=== PATIENT | female | born 1990 | race Caucasian/White ===

== ENCOUNTER 2017-02-07 16:00 | Observation (INO) | payer SELFPAY ==
[~2017-02-07] VITALS: Ht 154.9 cm; Wt 55.4 kg
--- NOTE | ~2017-02-07 | OR ---
PATIENT'S NAME: NANCY VENEGAS [facility] AGE: 26 Y [address] ROOM: [place] [address] LOCATION: [facility] ADMIT DATE: 02/07/2017 OR/Procedure Report DISCHARGE DATE: 02/09/2017 FAMILY PHYSICIAN: Physician, Unknown ATTENDING PHYSICIAN: Prince Smith SURGEON: Rob Pearce MD CHEMISTRY TEACHER: Ottoniel Eckert PA-C. DATE OF PROCEDURE: 02/08/2017 PREOPERATIVE DIAGNOSIS: Acute cholecystitis. POSTOPERATIVE DIAGNOSIS: Acute cholecystitis. PROCEDURE PERFORMED: Laparoscopic cholecystectomy. FINDINGS: The gallbladder was extremely edematous. No stones were identified. There was ascites in the abdomen. ESTIMATED BLOOD LOSS: Less than 50 mL. COMPLICATIONS: None. INDICATIONS: The patient presented with acute onset abdominal pain in the right upper quadrant. She had a thickened gallbladder wall by ultrasound and appearance of cholecystitis. No stones were visualized. Her clinical exam was consistent with acute cholecystitis. Because of this, we discussed cholecystectomy with the patient and the risks, benefits, and alternatives, which include, but are not limited to, bleeding, infection, bile leak, bile duct injury, injury to other viscera as well as ongoing symptomatology. She understood the risks of surgery and elected to proceed. DESCRIPTION OF PROCEDURE: The patient was taken into the operating room. She was supine, given IV sedation, and subsequently intubated. Her abdomen was prepped with ChloraPrep and sterilely draped. Local anesthetic was infiltrated just superior to the umbilicus. A transverse incision was created. The abdomen was elevated. A Veress needle was inserted. Pneumoperitoneum was induced. Following this, a 5-mm trocar was inserted followed by insertion of the camera. There was no injury from initial trocar placement. Three more trocars were then positioned, an 11-mm epigastric and two 5-mm right subcostal ports. Skin overlying the peritoneum was first anesthetized prior to making these incisions. All 3 of these trocars were inserted under direct visualization. The gallbladder was noted to be very edematous. There was omentum adherent to this and this was taken down both bluntly and with electrocautery. The gallbladder was then grasped and was elevated over the dome of the gallbladder. The infundibulum was grasped and PATIENT'S NAME: NANCY VENEGAS [facility] AGE: 26 Y [address] ROOM: [place] [address] LOCATION: [facility] ADMIT DATE: 02/07/2017 OR/Procedure Report DISCHARGE DATE: 02/09/2017 FAMILY PHYSICIAN: Physician, Unknown ATTENDING PHYSICIAN: Prince Smith retracted inferiorly and laterally to expose the Calot triangle. The cystic duct and artery were then dissected around circumferentially. A critical window was able to be obtained. Both of these structures were then doubly clipped and divided. The gallbladder was then removed from the liver bed using electrocautery, again it was very edematous. This was then grasped and brought out through the epigastric port site. The liver bed was then inspected. We had noted some ascites within the abdomen and this was suctioned from the abdominal cavity. There did not appear to be gross evidence of cirrhosis. The liver bed was inspected. It appeared hemostatic. Clips appeared to be in good position on both the cystic duct and artery. The area was then irrigated. Fluid was removed. The pneumoperitoneum was released. The trocars were removed. The trocar sites appeared hemostatic. The fascia of the epigastric port site was approximated with 0 Vicryl suture followed by skin closure of all 4 port sites with 4-0 Monocryl suture. Steri- Strips and sterile dressings were placed. The patient was extubated and sent to recovery in good condition. Ottoniel Eckert was necessary for visualization, retraction, and hemostasis throughout the entire case. MD KT BARRIGA/timothy /[id number] d: 02/13/172042 t: 02/27/171812, OPERATIVE SUMMARY
--- NOTE | ~2017-02-07 | CON ---
PATIENT'S NAME: NANCY VENEGAS [facility] AGE: 26 Y [address] ROOM: [place] [address] LOCATION: [facility] [place] ADMIT DATE: 02/07/2017 Consultation DISCHARGE DATE: FAMILY PHYSICIAN: PHYSICIAN, UNKNOWN ATTENDING PHYSICIAN: CORNELIUS JONES DATE OF CONSULTATION: 02/08/2017 REFERRING PHYSICIAN: Rob Pearce MD CONSULTATION NOTE REASON FOR CONSULTATION: Acute cholecystitis. HISTORY OF PRESENT ILLNESS: Nancy Venegas is a 26-year-old female, who was transferred to [facility] under the care of the hospitalist due to abdominal pain and findings worrisome for acute cholecystitis by ultrasound. The patient states that on Sunday, February 05, she noticed that her legs were swollen. She presented to the emergency room in [place], where she subsequently had an echocardiogram done. The following morning, she had abdominal pain along with some nausea, but no vomiting. An ultrasound of the abdomen was then obtained which showed a circumferential gallbladder wall thickening with associated edema as well as pericholecystic fluid. The patient was tender to direct gallbladder compression consistent with positive Pedro sign. Common bile duct measured 4 mm which was within normal limits. No mention of cholelithiasis was noted. The provider in [place], apparently contacted the surgeon, Dr. Roa from [place], who recommended a HIDA scan. The patient subsequently transferred to [facility] for the HIDA scan, and Surgery consultation was requested. The patient states that she has been having intermittent abdominal pain for months. This is typically associated with eating greasy foods. She states the pain is in the epigastric and right upper quadrant, and now also in the lower back. She denies any history of jaundice, hepatitis, or pancreatitis. PAST MEDICAL HISTORY: ALLERGIES: LATEX CAUSES RASH. MEDICATIONS: The patient denies being on any medications at home. ILLNESSES: PATIENT'S NAME: NANCY VENEGAS [facility] AGE: 26 Y [address] ROOM: [place] [address] LOCATION: [facility] [place] ADMIT DATE: 02/07/2017 Consultation DISCHARGE DATE: FAMILY PHYSICIAN: PHYSICIAN, UNKNOWN ATTENDING PHYSICIAN: CORNELIUS JONES None. PAST SURGICAL HISTORY: Operations: 1. D and C, it sounds like she may have been septic at the time of that procedure and had complications associated with that intraoperatively. 2. Two sections. SOCIAL HISTORY: The patient is accompanied by her boyfriend. 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 She smokes a pack of cigarettes per day. Does not consume alcohol. She recently did cocaine and heroin within the past week. FAMILY HISTORY: Not obtained. REVIEW OF SYSTEMS: The patient denies any recent coughs or colds. No shortness of breath. No chest pain. No history of any heart problems. No bowel issues. No blood in her stool. No pain, frequency, or urgency of urination. The patient denies being . PHYSICAL EXAMINATION: VITAL SIGNS: Temperature is 98.4, blood pressure 154/76, pulse 45, and respirations 17. GENERAL: A 26-year-old female, who is resting in bed. Curled up on her right side. She will answer my questions, but does not expand on the information at all. HEENT: Grossly normal. LUNGS: Clear to auscultation bilaterally. No wheezes, rhonchi, or rales noted. HEART: Regular rate and rhythm. ABDOMEN: Active bowel sounds. Abdomen is soft, very tender in the right upper quadrant. She does have a piercing at her umbilicus. LABORATORY DATA: Laboratory work here shows a white blood cell count of 7.9, hemoglobin 10.2, hematocrit 30.6, and platelets 206,000. CMP: Sodium is 144, potassium is 3.6, chloride 114, glucose 100, BUN 12, creatinine 0.6, total bilirubin 0.6, alkaline phosphatase 132, AST 98, and ALT 159. Blood culture shows no growth. Labs from [place] showed drug testing positive for cocaine and opiates. Liver function tests there showed a total bilirubin of 0.4, alkaline phosphatase 118, ALT 96, and AST 81. ASSESSMENT: PATIENT'S NAME: NANCY VENEGAS [facility] AGE: 26 Y [address] ROOM: [id number] [place], [place] [address] LOCATION: [facility] [place] ADMIT DATE: 02/07/2017 Consultation DISCHARGE DATE: FAMILY PHYSICIAN: PHYSICIAN, UNKNOWN ATTENDING PHYSICIAN: CORNELIUS JONES A 26-year-old female, with a 2-day history of right upper quadrant abdominal pain and nausea with ultrasound showing changes consistent with acute cholecystitis. PLAN: Based on the clinical exam, and findings on ultrasound, the patient has acute cholecystitis. The patient was scheduled to do a HIDA scan, per the recommendations of Dr. Roa, but we will go ahead and cancel that and recommend that we proceed with removal of the gallbladder at this time. The operation was discussed with the patient with expectations of her being able to go home tomorrow. Risks of the procedure including risk of bleeding, risk of infection, risk of injury to other structures was discussed with her. I discussed that she should be able to be back to fairly normal activities within about a week's time. The patient was in understanding and agreement. The patient did eat some toast this morning in anticipation of the HIDA scan, so we will talk to Anesthesia in regard to timing of the procedure. Dr. Pearce has evaluated the patient, is involved in assessment and plan, and is available for supervision. MIC SOSA PA-C FOR MD ROBERTA BARRIGA/timothy /[id number] d: 02/08/17 1447 t: 02/27/17 1811, CONSULTATION REPORT
--- NOTE | ~2017-02-07 | DS ---
PATIENT'S NAME: NANCY VENEGAS [facility] AGE: 26 Y [address] ROOM: [place] [address] LOCATION: [facility] [place] ADMIT DATE: 02/07/2017 Discharge Summary DISCHARGE DATE: 02/09/2017 FAMILY PHYSICIAN: Physician, Unknown ATTENDING PHYSICIAN: Prince Smith PRINCIPAL DIAGNOSES: 1. Acute cholecystitis. 2. Transaminitis secondary to acute cholecystitis. 3. Polysubstance abuse. 4. Tobaccoism. PRINCIPAL PROCEDURE: Laparoscopic cholecystectomy by Dr. Pearce. CONSULTING PROVIDER: Surgery. HOSPITAL COURSE: Please reference any admitting data to the history and physical as dictated by Dr. Prince Smith. This 26-year-old female, who was at the [facility] was found to have acute cholecystitis and positive blood cultures was transferred over to [facility] for further evaluation and management. The patient was continued on Zosyn coverage for concerns of positive blood culture. She was given IV symptomatic management as well as antinausea medications. A HIDA scan was ordered and a surgical consultation was ordered. By next morning, after surgical review, the HIDA was canceled and the patient was felt to be needing a laparoscopic cholecystectomy, which risks, benefits, and alternatives were discussed. She then went to surgery later that evening and understood the laparoscopic cholecystectomy with Dr. Pearce. The Zosyn was then stopped, blood cultures were found to be what appeared to be contaminated with a bacillus species. Repeat blood cultures were obtained and that showed no growth to date. White blood cell count was normal and she was afebrile during her stay. There were no signs of infection during the surgery. She was able to tolerate food and oral pain medicines. Her liver functions did decrease. Her total bilirubin was normal. LABORATORY DATA: Pertinent positives as listed above. Blood culture data from outlying facility had shown positive with culture results as bacillus species, not anthracis, felt to be contaminants. Repeat blood cultures here showed no growth to date. Most recent CBC was normal with a white blood cell count of 7.8, hemoglobin of 11.0, hematocrit of 33.0, and a platelet count of 208. A chemistry panel showed a glucose of 137, BUN of 15, creatinine of 0.6, sodium of 143, potassium of 3.8, chloride of 113, CO2 of 22, and calcium is 7.5. Her AST was down from 98 to 65, ALT 159-147, total bilirubin is normal at 0.3 and 0.6 respectively. GFR was greater than 60. PATIENT'S NAME: NANCY VENEGAS [facility] AGE: 26 Y [address] ROOM: [place] [address] LOCATION: [facility] [place] ADMIT DATE: 02/07/2017 Discharge Summary DISCHARGE DATE: 02/09/2017 FAMILY PHYSICIAN: Physician, Unknown ATTENDING PHYSICIAN: Prince Smith IMAGING: Obtained from outside facility. DISCHARGE MEDICATIONS: 1. Protonix 40 mg p.o. every day. 2. The [place] 5/325 mg 1-2 tablets every 4 hours as needed. 3. Ibuprofen 400 mg every 4 hours as needed for pain. 4. Nicotine patch 21 mg topically every 24 hours x6 weeks, then nicotine patch 14 mg topically every 24 hours x2 weeks, then nicotine patch 7 mg topically x24 hours every 2 weeks, then stop. DISCHARGE INSTRUCTIONS: The patient will be discharged home with no restrictions to her diet or activity or return to work. Prescription was written for 02/13/2017. The dressing may be removed in the next 2-3 days. Postoperative instruction sheet was educated. She is also educated to stop smoking and stop doing drugs and the long-term effects to her health. She did agree that she would be interested in stopping smoking and agreeable to nicotine patches. A prescription was ordered. She will need to follow up with Dr. Pearce on Thursday, February 23, 2017, at 1015 hours for posthospitalization evaluation. Total time arranging discharge was less than 30 minutes. Thank you for allowing us to participate in the care of this patient while at [facility]. TEO KAUR APRN, APRN FOR MD CRISTELA PULIDO/timothy /[id number] d: t: 02/10/17 0712, DISCHARGE SUMMARY
--- NOTE | ~2017-02-07 | HP ---
PATIENT'S NAME: NANCY VENEGAS [facility] AGE: 26 Y [address] ROOM: [place] [address] LOCATION: [facility] [place] ADMIT DATE: 02/07/2017 History & Physical DISCHARGE DATE: FAMILY PHYSICIAN: PHYSICIAN, UNKNOWN ATTENDING PHYSICIAN: CORNELIUS JONES DATE OF SERVICE: CHIEF COMPLAINT: Cholecystitis on abdominal ultrasound. HISTORY OF PRESENT ILLNESS: This is a 26-year-old female who is transferred from [place] to [facility] to evaluate her cholecystitis with a HIDA scan. History as obtained from the patient as well as obtained from the transfer records, the patient was admitted to [place] on February 05 after she presented with general complaint of weight gain and not feeling great and also a report of having used 1 g of cocaine over the last 3 days as well as heroin over the last 3 days. Prior to this, the patient had been sober for about 12 years from IV drug use. She used IV drug for about couple of years. She did also present at that time to [place] with fever; and by the next day, her blood culture was positive and ultimately came up for bacillus, not anthracis; and so next day, she was started on antibiotics of Zosyn. This morning, at 4 a.m., the patient complained of epigastric pain, which was not relieved with Protonix; so, they went ahead to get an abdominal ultrasound, which showed "cholecystitis." The surgeon Dr. Roa in [place] was contacted and he recommended for them to get a HIDA scan. Because HIDA scan was not available at [place], they decided to transfer the patient to [facility] for HIDA scan to be done. For the blood culture, the patient did get an echocardiogram to rule out endocarditis, which was negative, and also her urine drug screen was positive for cocaine and also opiate. Reason the patient gave for using the drugs and also 2 shots of alcohol last 3 days prior to admission there was that she was stressed up given the fact that her dad was in the hospital for open heart surgery, which coincided with the day that she lost her son; however, her dad was discharged from [facility] today. Right now, she still has the epigastric pain, notes nausea, but no vomiting. Denies pain in any other part of her body. Denies chest pain. Denies headache, neck pain, or back pain. Denies any urinary symptoms. Also, when the patient had the epigastric pain, her repeat liver function tests showed an elevation in her AST and her ALT and her alkaline phosphatase. On admission, her AST was 81 and the repeat today was 154, ALT was 170, and alkaline phosphatase was 128. REVIEW OF SYSTEM: All the systems were asked as documented in the HPI and others were negative. PAST MEDICAL HISTORY: None. PATIENT'S NAME: NANCY VENEGAS [facility] AGE: 26 Y [address] ROOM: [place] [address] LOCATION: [facility] [place] ADMIT DATE: 02/07/2017 History & Physical DISCHARGE DATE: FAMILY PHYSICIAN: PHYSICIAN, UNKNOWN ATTENDING PHYSICIAN: CORNELIUS JONES PAST SURGICAL HISTORY: Dilatation and curettage and x2. SOCIAL HISTORY: She reports she has been sober for the past 12 years; however, the last 3 days prior to admission at [place], she used cocaine and heroin and also 2 shots of alcohol. FAMILY HISTORY: She has a biological dad whom she does not know much about, what she remembers at the age of 22, he had a heart attack. She currently lives with her adopted dad who had an open heart surgery. Her mom is alive, born in 1968, cannot recall if she has any medical problems. PHYSICAL EXAMINATION: VITAL SIGNS: Blood pressure 152/95, pulse 44, oxygen saturation 100% on room air, temperature 98.2, and respiratory rate 12. GENERAL: Reveals a young female who is alert, awake, oriented x3, not in any form of respiratory distress or painful distress. NEUROLOGIC: Cranial nerves 2 through 12 are intact bilaterally. Sensory is intact bilaterally. Power is 5/5 in all the extremities. LABORATORY DATA: EKG which was done on the day of admission showed sinus tachycardia and possible left atrial enlargement. Glucose 122, BUN 8, creatinine 0.5, calcium 8.2, AST 154, albumin 2.4, alkaline phosphatase 128, and total bili 0.6. Sodium 139, potassium 3.7, chloride 109, and bicarb 19. Abdominal ultrasound is reported as acute cholecystitis, no dilatation noted of the biliary duct, no secondary involvement of the pancreas. WBC 4.3, H and H 10.6/30.3, and platelet 167. ASSESSMENT AND PLAN: This is a 26-year-old female with epigastric pain. 1. Epigastric pain, present on admission, probably secondary to acute cholecystitis, pain control is going to be with Tylenol and p.r.n. fentanyl intravenous. 2. Polysubstance abuse, counseling given. 3. Acute cholecystitis on imaging, we will get a HIDA scan tomorrow, and we will also get a General Surgery consult in the morning. 4. Please note above assessment are present on admission. 5. Anemia, probably secondary to menstruation, we will do some iron studies. 6. Bacteremia, present on admission. The patient is currently on Zosyn, we will continue the patient on Zosyn, and we will follow up on the repeat blood culture, which may have been done at [place] and we will repeat PATIENT'S NAME: NANCY VENEGAS [facility] AGE: 26 Y [address] ROOM: [place] [address] LOCATION: [facility] [place] ADMIT DATE: 02/07/2017 History & Physical DISCHARGE DATE: FAMILY PHYSICIAN: PHYSICIAN, UNKNOWN ATTENDING PHYSICIAN: CORNELIUS JONES a set of blood culture here and if the repeat blood culture here remains negative then we will stop the Zosyn. The line of management was explained to the patient who did not have any questions at this time. MD BELKIS ANG/timothy /[id number] D: 052 T: [id number] HISTORY & PHYSICAL
[2017-02-07] MEDS ORDERED: IBUPROFEN200 MG PO (18:45)
[2017-02-07] MEDS ORDERED: PROTONIX40 MG PO (18:46)
[2017-02-07] MEDS ORDERED: TYLENOL325 MG PO (18:51)
--- NOTE | 2017-02-07 19:26 | NUR ---
Patient is 26 yo female admitted this evening for cholecystitis from [facility]. Patient states she has gained about 20 lbs over the past week w/abdominal pain. states she did try cocaine and heroin over the weekend for the first time. does not drink alcohol. did vomit on Sunday several times. abdomen is becoming more painful and distended. Education is given as documented. patient denies questions. boyfriend does come in during education. pneumatics are on bilat calves. pt nicol well. call light is within reach. patient denies needs at this time. Report is given to DONI Lombardi.
--- NOTE | 2017-02-08 01:42 | NUR ---
SIGNIFICANT EVENT: Patient alert & oriented. Admitted for cholecystitis. 25 mcg IV Fentanyl given x3 so far this shift, last at approx. 0015. Bradycardic - HR in 40's, tele on with 1 call for HR down to 39. MD notified, orders to monitor BP and as long as BP is not lowering also - will just continue to monitor HR. Slightly hypertensive - 141 to 152 over 90 to 98. 1PA to BR. 1 mod void and 1 mod BM since admission. Need diet orders - HIDA scan ordered for A.M. Latex allergy. Pleasant and cooperative with cares.
[2017-02-08 05:02] LABS: BASOPHIL % 0.3 %; EOSINOPHIL # 0.1 K/uL (0.0-0.5); EOSINOPHIL % 1.7 %; HEMATOCRIT 30.6 % (33.0-46.0); HEMOGLOBIN 10.2 g/dL (11.0-15.0); IMMATURE GRANULOCYTE % 0.3 %; LYMPHOCYTE # 3.4 K/uL (0.8-4.0); LYMPHOCYTE % 42.9 %; MCH 28.4 pg (27.0-34.0); MCHC 33.3 gm/dL (32.0-36.5); MCV 85.2 fl (83.0-98.0); MONOCYTE # 0.4 K/uL (0.0-1.0); MONOCYTE % 5.2 %; MPV 10.4 fl (9.4-12.4); NEUTROPHIL # (ANC) 3.9 K/uL (1.8-7.8); NEUTROPHIL % 49.6 %; NRBC % 0 /100WBC (0-0.00); PLATELET COUNT 206 K/uL (150-450); RBC 3.59 M/uL (3.50-5.00); RDW-CV 13.6 % (11.9-14.6); WBC 7.9 K/uL (4.0-11.0)
[2017-02-08 05:18] LABS: ALBUMIN 2.5 gm/dL (3.5-5.0); ALK PHOS 132 IU/L (33-138); ALT 159 IU/L (12-78); ANION GAP 13.6 (10.0-19.0); AST 98 IU/L (10-40); BLOOD UREA NITROGEN 12 mg/dL (6-24); CALCIUM 7.6 mg/dL (8.5-10.5); CHLORIDE 114 mMol/L (96-110); CO2 20 mMol/L (22-32); CREATININE 0.6 mg/dL (0.5-1.1); ESTIMATED GFR (MDRD EQUATION) > 60; MAGNESIUM 1.8 mg/dL (1.8-2.6); PHOSPHORUS 3.6 mg/dL (2.5-4.9); POTASSIUM 3.6 mMol/L (3.7-5.1); SODIUM 144 mMol/L (135-145); TOTAL BILIRUBIN 0.6 mg/dL (0.0-1.5); TOTAL PROTEIN 5.4 g/dL (6.0-8.4)
--- NOTE | 2017-02-08 14:46 | NUR ---
Reviewed chart- patient is going to surgery today. Will meet with her tomorrow.
--- NOTE | 2017-02-08 16:26 | NUR ---
to surgery at 1400 for cholecystectomy.
--- NOTE | 2017-02-08 17:44 | NUR ---
Significant Event:PT HAD LAP MICHAEL THIS AFTERNOON AND RETURNED TO ROOM AT 1715. BOY FRIEND PRESENT. 2 LAP SITES HAVE MARKED DRAINAGE. C/O INCISIONAL PAIN. ICE BAG TO INCISIONS. HAS NOT VOIDED YET. IV PALLAVI. LAST DOSE PERCOCET AT 1530ISH IN RECOVERY ROOM. PT STATES HAVING HER PERIOD. Follow up:
--- NOTE | 2017-02-08 18:36 | NUR ---
PT TO FLOOR AT 1715. A/O AND C/O PAIN IN LAP SITES. HAD NORCO TABS TWO AT 1628 IN RECOVERY ROOM. WHEN CHECKED PT AT 1730 SHE WAS SLEEPING. PULSE JONATHAN AT 39-40.
[2017-02-09 05:10] LABS: MCH 28.4 pg (27.0-34.0); MCHC 33.3 gm/dL (32.0-36.5); MCV 85.3 fl (83.0-98.0); MPV 10.4 fl (9.4-12.4); PLATELET COUNT 208 K/uL (150-450); RBC 3.87 M/uL (3.50-5.00); RDW-CV 13.5 % (11.9-14.6); WBC 7.8 K/uL (4.0-11.0)
[2017-02-09 05:27] LABS: ALBUMIN 2.4 gm/dL (3.5-5.0); ALK PHOS 121 IU/L (33-138); ALT 147 IU/L (12-78); ANION GAP 11.8 (10.0-19.0); AST 65 IU/L (10-40); BLOOD UREA NITROGEN 15 mg/dL (6-24); CALCIUM 7.5 mg/dL (8.5-10.5); CHLORIDE 113 mMol/L (96-110); CO2 22 mMol/L (22-32); CREATININE 0.6 mg/dL (0.5-1.1); ESTIMATED GFR (MDRD EQUATION) > 60; POTASSIUM 3.8 mMol/L (3.7-5.1); SODIUM 143 mMol/L (135-145); TOTAL PROTEIN 5.3 g/dL (6.0-8.4)
[2017-02-09 05:30] LABS: TOTAL BILIRUBIN 0.3 mg/dL (0.0-1.5)
--- NOTE | 2017-02-09 05:45 | NUR ---
SIGNIFICANT EVENT: Patient alert, oriented but finally did sleep this shift. Had surgery yesterday. [place] x2, last at 0243. Fentanyl x3, last at 0321. Reminded pt that its important we taper off of the fentanyl as she will not have this once home. PRN [place] available q4h to try to control pain. Bradycardic (47 to 52), can be hypertensive. Rapid RR with pain (20 to 24). Afebrile. 95 to 96 on RA. LATEX ALLERGY. Up to walk x1 this shift. R) posterior FA IV infusing NS at 75. Pleasant and cooperative with cares.
[2017-02-09 05:53] LABS: ABSOLUTE NEUTROPHIL CT (ANC) 5.9 K/uL (1.8-7.8); BANDED NEUTROPHIL # 0.2 K/uL (0.0-0.1); BANDED NEUTROPHILS % 3 %; LYMPHOCYTE # 1.6 K/uL (0.8-4.0); LYMPHOCYTE % 20 %; MONOCYTE # 0.3 K/uL (0.0-1.0); SEGMENTED NEUTROPHIL # 5.7 K/uL (1.8-7.8); SEGMENTED NEUTROPHIL % 73 %
[2017-02-09] MEDS ORDERED: NORCO 5-325 TA1 EACH PO (11:29)
[2017-02-09] MEDS ORDERED: NICOTINE PATCH1 EACH TOP ×2 (11:31→11:32)
[2017-02-09] MEDS ORDERED: NICODERM / HABIT7 MG TRANS (11:32)
[2017-02-09] MEDS ORDERED: FENTANYL IV (11:37)
[2017-02-09] MEDS ORDERED: PIPERACIL-TA3.375 GM IV (11:37)
[2017-02-09] MEDS ORDERED: ONDANSETRON4 MG/2 M2 IV (11:37)
[2017-02-09] MEDS ORDERED: ATIVAN IV (11:37)
[2017-02-09] MEDS ORDERED: SODIUM CHLORI IV (11:37)
--- NOTE | 2017-02-09 11:41 | NUR ---
D: ORDERS RECEIVED FOR THE PATIENT TO BE DISCHARGED TO HOME TODAY. I: DISMISSAL INSTRUCTIONS WERE PREPARED AND REVIEWED WITH THE PATIENT VIRTUALLY. THE FOLLOWING INFORMATION WAS DISCUSSED INCLUDING RICARDO TEACHING SHEETS PROVIDED: NORCO, NICOTINE TRANSDERMAL 24 HOUR PATCH, DISCHARGE INSTRUCTIONS FOR KIMI RODRIGUEZ, PLANNING TO QUIT SMOKING, ADDICTION-YOUR TREATMENT OPTIONS, HEALTH EFFECTS OF SMOKING AND PREVENTING DVT. REVIEWED FOLLOW UP APPOINTMENT WITH DR. IGLESIAS IN 2 WEEKS AND ALL NEW PRESCRIPTIONS. THE PATIENT WAS INSTRUCTED TO TAKE HER PRESCRIPTIONS TO HER PHARMACY OF CHOICE TO GET FILLED. R: THE PATIENT VERBALIZED UNDERSTANDING OF THE DISMISSAL EDUCATION AT THE TIME OF TEACHING WITH NO FURTHER QUESTIONS. P: THE ABOVE INFORMATION WAS SHARED WITH THE PRIMARY NURSE AND THE CHARGE NURSE THAT THE PATIENT DISMISSAL EDUCATION WAS COMPLETED. THE PATIENT IS READY FOR DISCHARGE TO THE FRONT DOOR BY NURSING STAFF. FLACO SPANN WALKED PATIENT TO THE FRONT DOOR AT 1158.
== END 2017-02-09 12:00 | disposition disaster alternative care site (69) ==
LOC: GMSU 18:23
PROVIDERS: Surgery; ADMIT Hospitalist
PROC: 0FT44ZZ Resection of Gallbladder, Percutaneous Endoscopic Approach (ICD-10-PCS; principal; 2017-02-08)
DX: K81.0 Acute cholecystitis (principal); F19.10 Other psychoactive substance abuse, uncomplicated; F17.200 Nicotine dependence, unspecified, uncomplicated; Z91.040 Latex allergy status
CPT/HCPCS: A9537; G0378; J0694; J1644; J2405; J2543; J3010; J3360; J7030; J7050